=== PATIENT | female | born 1955 | race Two or more races ===

== ENCOUNTER 2023-06-13 21:21 | Emergency (ER) | payer BC, OTHER ==
[~2023-06-13] VITALS: Ht 154.9 cm; Wt 86.2 kg
[2023-06-13] MEDS ORDERED: LIDOCAINE VISCOUS 2% UD 15 ML UDC ONE (22:53)
[2023-06-13] MEDS ORDERED: MORPHINE SULFATE INJ 4 MG/ML DISP.SYRIN ONE (22:53)
[2023-06-13] MEDS ORDERED: ONDANSETRON HCL/PF 4 MG/2 ML VIAL ONE (22:53)
[2023-06-13] MEDS ORDERED: MAG HYDROX/AL HYDROX/SIMETH 30 ML UDC ONE (22:53)
[2023-06-13] MEDS ORDERED: IV NS 0.9% 1,000 ML BAG IV ONE (23:00)
[2023-06-13] MEDS ORDERED: ONDANSETRON HCL/PF 4 MG/2 ML VIAL IVP ONE (23:00)
[2023-06-13] MEDS ORDERED: MAG HYDROX/AL HYDROX/SIMETH 30 ML UDC PO ONE (23:00)
[2023-06-13] MEDS ORDERED: LIDOCAINE VISCOUS 2% UD 15 ML UDC MM ONE (23:00)
[2023-06-13] MEDS ORDERED: MORPHINE SULFATE INJ 2 MG/ML DISP.SYRIN IV ONE (23:00)
[2023-06-13 23:08] LABS: BASOPHILS % (AUTO) 0.2 % (0.0-2.0); EOSINOPHILS % (AUTO) 0.2 % (0.0-6.0); HEMATOCRIT 44 % (33-45); HEMOGLOBIN 14.5 g/dL (11.5-14.8); LYMPHOCYTES # (AUTO) 1.6 K/uL (0.8-4.8); LYMPHOCYTES % (AUTO) 15.8 % (20.0-44.0); MEAN CORPUSCULAR HEMOGLOBIN 31 PG (26.0-33.0); MEAN CORPUSCULAR HGB CONC 33 g/dl (31.0-36.0); MEAN CORPUSCULAR VOLUME 93 fL (82-100); MONOCYTES # (AUTO) 0.1 K/uL (0.1-1.30); MONOCYTES % (AUTO) 1.3 % (2.0-12.0); NEUTROPHILS # (AUTO) 8.1 K/uL (1.8-8.9); NEUTROPHILS % (AUTO) 82.5 % (43.0-81.0); PLATELET COUNT (AUTO) 87 K/uL (150-450); RED BLOOD CELL COUNT(AUTO) 4.74 MIL/uL (4.0-5.2); RED CELL DISTRIBUTION WIDTH 16.1 % (11.5-15.0); WHITE BLOOD COUNT (AUTO) 9.9 K/uL (4.3-11.0)
[2023-06-13 23:40] LABS: BILIRUBIN,DIRECT 0.3 mg/dL (0.0-0.2); BILIRUBIN,TOTAL 0.9 mg/dL (0.2-1.0); CALCIUM, SERUM 9.8 mg/dL (8.5-10.1); POTASSIUM 3.6 mmol/L (3.5-5.1); TOTAL PROTEIN, SERUM 9.1 g/dL (6.4-8.2)
[2023-06-14 01:31] LABS: BAND % (MANUAL) 7 % (0.0-5.0); LYMPHOCYTES % (MANUAL) 14 % (16-48); MONOCYTES % (MANUAL) 1 % (0-11.0); NEUTROPHILS % (MANUAL) 78 (42-76)
[2023-06-14 01:32] LABS: PLATELET ESTIMATE DECREASED
[2023-06-14] MEDS ORDERED: ONDA4TAB11 PO (04:58)
[2023-06-14 04:59] VITALS: BP 139/70; TEMP 98.1; O2SAT 98
== END 2023-06-14 05:04 | disposition home or self-care (01) ==
LOC: ER 21:23
DX: R10.10 Upper abdominal pain, unspecified (principal); R11.2 Nausea with vomiting, unspecified; I10 Essential (primary) hypertension; E78.5 Hyperlipidemia, unspecified; E11.9 Type 2 diabetes mellitus without complications
CPT/HCPCS: 99285; 74176; 96374; 96361; 96375; 93005; 85025; 80048; 83690; 80076; 36415; 85007; J2270; J2405; J7030

== ENCOUNTER 2024-03-13 16:12 | Inpatient (IN) | payer MEDICARE, BC ==
[~2024-03-13] VITALS: Ht 152.4 cm; Wt 75.7 kg
[~2024-03-13 16:12] MED LIST: ONDA4TAB11 PO
[2024-03-13 17:03] LABS: SERUM AMMONIA 11 umol/L (11-32)
[2024-03-13 17:12] LABS: BASOPHILS % (AUTO) 0.6 % (0.0-2.0); EOSINOPHILS # (AUTO) 0.1 K/uL (0.0-0.7); EOSINOPHILS % (AUTO) 1.6 % (0.0-6.0); HEMATOCRIT 31 % (33-45); HEMOGLOBIN 10.1 g/dL (11.5-14.8); LYMPHOCYTES # (AUTO) 0.8 K/uL (0.8-4.8); MEAN CORPUSCULAR HEMOGLOBIN 31 PG (26.0-33.0); MEAN CORPUSCULAR HGB CONC 33 g/dl (31.0-36.0); MEAN CORPUSCULAR VOLUME 93 fL (82-100); MONOCYTES # (AUTO) 0.5 K/uL (0.1-1.30); MONOCYTES % (AUTO) 9.1 % (2.0-12.0); NEUTROPHILS # (AUTO) 3.7 K/uL (1.8-8.9); NEUTROPHILS % (AUTO) 72.7 % (43.0-81.0); RED BLOOD CELL COUNT(AUTO) 3.29 MIL/uL (4.0-5.2); RED CELL DISTRIBUTION WIDTH 22.7 % (11.5-15.0); WHITE BLOOD COUNT (AUTO) 5.1 K/uL (4.3-11.0)
[2024-03-13 17:15] LABS: PLATELET COUNT (AUTO) 32 K/uL (150-450)
[2024-03-13] MEDS: CEFEPIME 1 GM in IV D5W 50 ML IV ONE (17:34)
[2024-03-13 17:40] LABS: INR 1.36 (0.91-1.10); PARTIAL THROMBOPLASTIN TIME 35.5 SEC (24.3-34.3); PROTHROMBIN TIME 13.8 SECS (9.2-11.1)
[2024-03-13 17:46] LABS: LACTIC ACID 2.8 mmol/L (0.4-2.0)
[2024-03-13 17:48] LABS: CALCIUM, SERUM 9.1 mg/dL (8.5-10.1); CARBON DIOXIDE 20 mmol/L (21-32); CHLORIDE 90 mmol/L (98-107); GLUCOSE 112 mg/dL (74-106); POTASSIUM 5.2 mmol/L (3.5-5.1); SODIUM SERUM 127 mmol/L (136-145)
[2024-03-13 17:54] LABS: ALANINE AMINOTRANSFERASE 46 U/L (12-78); ALBUMIN 2.8 g/dL (3.4-5.0); ALKALINE PHOSPHATASE 207 U/L (46-116); ASPARTATE AMINOTRANSFERASE 101 U/L (15-37); BILIRUBIN,DIRECT 2.4 mg/dL (0.0-0.2); BILIRUBIN,TOTAL 3.5 mg/dL (0.2-1.0); CREATININE 10.1 mg/dL (0.6-1.3); LIPASE < 375 U/L (16-77); TOTAL PROTEIN, SERUM 7.8 g/dL (6.4-8.2); UREA NITROGEN, BLOOD 109 mg/dL (7-18)
[2024-03-13] MEDS: VANCOMYCIN 1 GM in IV D5W 250 ML IV ONE (18:03)
[2024-03-13] MEDS ORDERED: MAG HYDROX/AL HYDROX/SIMETH 30 ML UDC PO PRN (18:30)
[2024-03-13] MEDS ORDERED: ACETAMINOPHEN 325 MG TABLET PO PRN (18:30)
[2024-03-13] MEDS ORDERED: Z GUARD REMEDY 4 OZ OINT TP PRN (18:30)
[2024-03-13] MEDS ORDERED: MAGNESIUM HYDROXIDE 30 ML UDC PO PRN (18:30)
[2024-03-13] MEDS ORDERED: ONDANSETRON 4 MG TAB.RAPDIS PO PRN (18:30)
[2024-03-13] MEDS ORDERED: GABA300C PO (19:10)
[2024-03-13] MEDS ORDERED: LOPE2CAP14 PO (19:10)
[2024-03-13] MEDS ORDERED: SPIR50TA PO (19:10)
[2024-03-13] MEDS ORDERED: PANT40TA49 PO (19:10)
[2024-03-13] MEDS ORDERED: DAPA10TA PO (19:10)
[2024-03-13] MEDS ORDERED: CARV6.252 PO (19:10)
[2024-03-13] MEDS ORDERED: FURO20TA4 PO (19:10)
[2024-03-13] MEDS ORDERED: PRAV20TA4 PO (19:10)
[2024-03-13 19:28] LABS: LYMPHOCYTES % (MANUAL) 11 % (16-48); MONOCYTES % (MANUAL) 8 % (0-11.0); NEUTROPHILS % (MANUAL) 81 (42-76)
[2024-03-13 19:29] LABS: ANISOCYTOSIS 1+; PLATELET ESTIMATE DECRE
[2024-03-13 19:30] LABS: TARGET CELLS 1+
[2024-03-13 21:41] VITALS: BP 92/70; TEMP 98.7; O2SAT 96
[2024-03-14] VITALS (20 sets, daily range): BP systolic 82–122; BP diastolic 44–95; TEMP 97.4–98.7; O2SAT 95–98
[2024-03-14 07:37] LABS: BASOPHILS % (AUTO) 0.3 % (0.0-2.0); EOSINOPHILS % (AUTO) 1.1 % (0.0-6.0); HEMATOCRIT 30 % (33-45); LYMPHOCYTES # (AUTO) 0.7 K/uL (0.8-4.8); LYMPHOCYTES % (AUTO) 16.5 % (20.0-44.0); MEAN CORPUSCULAR HEMOGLOBIN 31 PG (26.0-33.0); MEAN CORPUSCULAR HGB CONC 34 g/dl (31.0-36.0); MEAN CORPUSCULAR VOLUME 93 fL (82-100); MONOCYTES # (AUTO) 0.4 K/uL (0.1-1.30); MONOCYTES % (AUTO) 8.5 % (2.0-12.0); NEUTROPHILS # (AUTO) 3.2 K/uL (1.8-8.9); NEUTROPHILS % (AUTO) 73.6 % (43.0-81.0); RED BLOOD CELL COUNT(AUTO) 3.18 MIL/uL (4.0-5.2); RED CELL DISTRIBUTION WIDTH 22.1 % (11.5-15.0); WHITE BLOOD COUNT (AUTO) 4.4 K/uL (4.3-11.0)
[2024-03-14 08:03] LABS: PLATELET COUNT (AUTO) 30 K/uL (150-450)
[2024-03-14 10:09] LABS: CALCIUM, SERUM 8.8 mg/dL (8.5-10.1); MAGNESIUM 2.8 mg/dL (1.8-2.4); POTASSIUM 5.4 mmol/L (3.5-5.1)
[2024-03-14 10:30] LABS: CREATININE 10.5 mg/dL (0.6-1.3); PHOSPHORUS 10.3 mg/dL (2.5-4.9)
[2024-03-14] MEDS ORDERED: SODIUM POLYSTYRENE SULF. PWD 15 GM UDC PO ONE (10:30)
[2024-03-14] MEDS: SODIUM POLYSTYRENE SULFONATE 15 G/60 ML BOTTLE PO ONE (11:29)
[2024-03-14 15:53] LABS: EOSINOPHILS % (MANUAL) 1 % (0-4); LYMPHOCYTES % (MANUAL) 11 % (16-48); MONOCYTES % (MANUAL) 7 % (0-11.0); NEUTROPHILS % (MANUAL) 81 (42-76); PLATELET ESTIMATE DECREASED
[2024-03-14 15:54] LABS: ANISOCYTOSIS 1+
[2024-03-14] MEDS: CARVEDILOL 6.25 MG TABLET PO SCH (16:34)
[2024-03-14] MEDS: NOREPINEPHRINE 8 MG in IV D5W 242 ML IV PRN (18:09)
[2024-03-14] MEDS: MIDODRINE HCL (5MG) 5 MG TABLET PO ONE (18:21)
[2024-03-14] MEDS: CEFEPIME 1 GM in IV D5W 50 ML IV SCH (20:07)
[2024-03-15] VITALS (98 sets, daily range): BP systolic 75–114; BP diastolic 47–83; TEMP 97.5–98.1; O2SAT 93–97
[2024-03-15 04:28] LABS: BASOPHILS % (AUTO) 0.3 % (0.0-2.0); EOSINOPHILS # (AUTO) 0.1 K/uL (0.0-0.7); EOSINOPHILS % (AUTO) 1.3 % (0.0-6.0); HEMATOCRIT 30 % (33-45); HEMOGLOBIN 10.3 g/dL (11.5-14.8); LYMPHOCYTES # (AUTO) 0.9 K/uL (0.8-4.8); LYMPHOCYTES % (AUTO) 15.3 % (20.0-44.0); MEAN CORPUSCULAR HEMOGLOBIN 32 PG (26.0-33.0); MEAN CORPUSCULAR HGB CONC 34 g/dl (31.0-36.0); MEAN CORPUSCULAR VOLUME 92 fL (82-100); MONOCYTES # (AUTO) 0.4 K/uL (0.1-1.30); MONOCYTES % (AUTO) 7.4 % (2.0-12.0); NEUTROPHILS # (AUTO) 4.4 K/uL (1.8-8.9); NEUTROPHILS % (AUTO) 75.7 % (43.0-81.0); RED BLOOD CELL COUNT(AUTO) 3.25 MIL/uL (4.0-5.2); RED CELL DISTRIBUTION WIDTH 22.2 % (11.5-15.0); WHITE BLOOD COUNT (AUTO) 5.8 K/uL (4.3-11.0)
[2024-03-15 04:37] LABS: PLATELET COUNT (AUTO) 44 K/uL (150-450)
[2024-03-15 04:51] LABS: ALBUMIN 2.8 g/dL (3.4-5.0); BILIRUBIN,TOTAL 3.6 mg/dL (0.2-1.0); CALCIUM, SERUM 8.7 mg/dL (8.5-10.1); CREATININE 7.5 mg/dL (0.6-1.3); MAGNESIUM 2.6 mg/dL (1.8-2.4); PHOSPHORUS 7.2 mg/dL (2.5-4.9); POTASSIUM 4.3 mmol/L (3.5-5.1); TOTAL PROTEIN, SERUM 8.2 g/dL (6.4-8.2)
[2024-03-15] MEDS: PANTOPRAZOLE 40 MG TABLET.DR PO SCH (08:14)
[2024-03-15 12:37] LABS: ANISOCYTOSIS 1+; EOSINOPHILS % (MANUAL) 2 % (0-4); HYPOCHROMASIA 1+; LYMPHOCYTES % (MANUAL) 8 % (16-48); MONOCYTES % (MANUAL) 3 % (0-11.0); NEUTROPHILS % (MANUAL) 87 (42-76); PLATELET ESTIMATE DECREASED; TARGET CELLS 1+
[2024-03-16] VITALS (96 sets, daily range): BP systolic 68–132; BP diastolic 31–80; TEMP 98.1–98.7; O2SAT 91–100
[2024-03-16] MEDS: ONDANSETRON HCL/PF 4 MG/2 ML VIAL IVP PRN (04:33)
[2024-03-16 05:12] LABS: BASOPHILS % (AUTO) 0.5 % (0.0-2.0); EOSINOPHILS # (AUTO) 0.1 K/uL (0.0-0.7); EOSINOPHILS % (AUTO) 1.5 % (0.0-6.0); HEMATOCRIT 31 % (33-45); HEMOGLOBIN 10.8 g/dL (11.5-14.8); LYMPHOCYTES # (AUTO) 1.2 K/uL (0.8-4.8); LYMPHOCYTES % (AUTO) 16.5 % (20.0-44.0); MEAN CORPUSCULAR HEMOGLOBIN 32 PG (26.0-33.0); MEAN CORPUSCULAR HGB CONC 35 g/dl (31.0-36.0); MEAN CORPUSCULAR VOLUME 92 fL (82-100); MONOCYTES # (AUTO) 0.6 K/uL (0.1-1.30); MONOCYTES % (AUTO) 8.3 % (2.0-12.0); NEUTROPHILS # (AUTO) 5.2 K/uL (1.8-8.9); NEUTROPHILS % (AUTO) 73.2 % (43.0-81.0); PLATELET COUNT (AUTO) 86 K/uL (150-450); RED BLOOD CELL COUNT(AUTO) 3.39 MIL/uL (4.0-5.2); RED CELL DISTRIBUTION WIDTH 22.6 % (11.5-15.0)
[2024-03-16 05:53] LABS: POTASSIUM 6.4 mmol/L (3.5-5.1)
[2024-03-16 06:16] LABS: BASOPHILS % (MANUAL) 0 % (0.0-2.0); EOSINOPHILS % (MANUAL) 2 % (0-4); LYMPHOCYTES % (MANUAL) 11 % (16-48); MONOCYTES % (MANUAL) 6 % (0-11.0); NEUTROPHILS % (MANUAL) 81 (42-76); PLATELET ESTIMATE DECREASED
[2024-03-16 06:17] LABS: ANISOCYTOSIS 1+; TARGET CELLS 2+
[2024-03-16] MEDS: SODIUM POLYSTYRENE SULFONATE 15 G/60 ML BOTTLE PO ONE (06:30)
[2024-03-16 08:12] LABS: PTH, INTACT 139 pg/mL (15-65)
[2024-03-16 08:12] LABS: HEPATITIS B SURFACE AB Non Reactive (.)
[2024-03-16] MEDS: ALBUTEROL FS 2.5 MG/0.5 ML VIAL.NEB NEB ONE (08:22)
[2024-03-16] MEDS: CLOTRIMAZOLE/BETAMETASONE DIPROPIONATE 15 GM TUBE TP SCH (10:15)
[2024-03-16] MEDS: LORAZEPAM INJ 2 MG/ML VIAL IV PRN (10:55)
[2024-03-16 11:12] LABS: HEPATITIS B CORE AB, IgM Negative (Negative); HEPATITIS B CORE AB, TOTAL Negative (Negative); HEPATITIS B SURFACE AB Non Reactive (.)
[2024-03-16] MEDS: HYDROCORTISONE SOD SUCCINATE 100 MG/2 ML VIAL IV SCH (14:09)
[2024-03-16 19:01] LABS: POTASSIUM 4.2 mmol/L (3.5-5.1)
[2024-03-17] VITALS (59 sets, daily range): BP systolic 81–134; BP diastolic 47–107; TEMP 96.1–98.6; O2SAT 90–100
[2024-03-17] MEDS: DILTIAZEM HCL 50 MG IV IV ONE (02:37)
[2024-03-17 05:16] LABS: CALCIUM, SERUM 8.2 mg/dL (8.5-10.1); CREATININE 5.9 mg/dL (0.6-1.3)
[2024-03-17 05:18] LABS: BASOPHILS % (AUTO) 0.4 % (0.0-2.0); EOSINOPHILS % (AUTO) 0.1 % (0.0-6.0); HEMATOCRIT 30 % (33-45); HEMOGLOBIN 10.4 g/dL (11.5-14.8); LYMPHOCYTES # (AUTO) 1.5 K/uL (0.8-4.8); LYMPHOCYTES % (AUTO) 18.7 % (20.0-44.0); MEAN CORPUSCULAR HEMOGLOBIN 32 PG (26.0-33.0); MEAN CORPUSCULAR HGB CONC 35 g/dl (31.0-36.0); MEAN CORPUSCULAR VOLUME 92 fL (82-100); MONOCYTES # (AUTO) 0.4 K/uL (0.1-1.30); MONOCYTES % (AUTO) 5.2 % (2.0-12.0); NEUTROPHILS % (AUTO) 75.6 % (43.0-81.0); PLATELET COUNT (AUTO) 135 K/uL (150-450); RED BLOOD CELL COUNT(AUTO) 3.26 MIL/uL (4.0-5.2); RED CELL DISTRIBUTION WIDTH 23.3 % (11.5-15.0); WHITE BLOOD COUNT (AUTO) 7.9 K/uL (4.3-11.0)
[2024-03-17 05:47] LABS: POTASSIUM 7.8 mmol/L (3.5-5.1)
[2024-03-17 06:30] LABS: PLATELET ESTIMATE DECREASED
[2024-03-17 06:31] LABS: ANISOCYTOSIS 2+; TARGET CELLS 1+; TEAR DROP CELLS 1+
[2024-03-17] MEDS: SODIUM POLYSTYRENE SULFONATE 15 G/60 ML BOTTLE PO ONE (06:55)
[2024-03-18] VITALS (36 sets, daily range): BP systolic 80–132; BP diastolic 49–116; TEMP 97–98; O2SAT 93–100
[2024-03-18] MEDS ORDERED: NEPRO VAN 237 ML CAN PO PRN (10:00)
[2024-03-18 12:10] LABS: CALCIUM, SERUM 8.9 mg/dL (8.5-10.1); CREATININE 5.4 mg/dL (0.6-1.3)
[2024-03-19] VITALS (8 sets, daily range): BP systolic 88–99; BP diastolic 48–76; TEMP 97.1–97.4; O2SAT 95–99
[2024-03-19 07:10] LABS: *SPE A/G RATIO 0.7 (0.7-1.7); *SPE ALBUMIN 3.1 g/dL (2.9-4.4); *SPE ALPHA-1-GLOBULIN 0.3 g/dL (0.0-0.4); *SPE ALPHA-2-GLOBULIN 0.7 g/dL (0.4-1.0); *SPE BETA GLOBULIN 1.1 g/dL (0.7-1.3); *SPE GLOBULIN, TOTAL 4.7 g/dL (2.2-3.9); *SPE M-SPIKE Not Observed g/dL (Not Observed); *SPE PROTEIN TOTAL 7.8 g/dL (6.0-8.5); *SPEGAMMA GLOBULIN 2.6 g/dL (0.4-1.8)
[2024-03-19 08:12] LABS: CALCIUM, SERUM 9.2 mg/dL (8.5-10.1); POTASSIUM 3.7 mmol/L (3.5-5.1)
[2024-03-19] MEDS: PANTOPRAZOLE 40 MG VIAL IV SCH (08:31)
[2024-03-19 09:45] LABS: BASOPHILS % (AUTO) 0.3 % (0.0-2.0); EOSINOPHILS % (AUTO) 0.1 % (0.0-6.0); HEMATOCRIT 29 % (33-45); HEMOGLOBIN 9.9 g/dL (11.5-14.8); LYMPHOCYTES % (AUTO) 16.1 % (20.0-44.0); MEAN CORPUSCULAR HEMOGLOBIN 32 PG (26.0-33.0); MEAN CORPUSCULAR HGB CONC 34 g/dl (31.0-36.0); MEAN CORPUSCULAR VOLUME 93 fL (82-100); MONOCYTES # (AUTO) 0.3 K/uL (0.1-1.30); MONOCYTES % (AUTO) 5.2 % (2.0-12.0); NEUTROPHILS % (AUTO) 78.3 % (43.0-81.0); RED BLOOD CELL COUNT(AUTO) 3.11 MIL/uL (4.0-5.2); RED CELL DISTRIBUTION WIDTH 23.8 % (11.5-15.0); WHITE BLOOD COUNT (AUTO) 6.4 K/uL (4.3-11.0)
[2024-03-19 10:01] LABS: PLATELET COUNT (AUTO) 12 K/uL (150-450)
[2024-03-19 10:35] LABS: BASOPHILS % (MANUAL) 0 % (0.0-2.0); EOSINOPHILS % (MANUAL) 0 % (0-4); LYMPHOCYTES % (MANUAL) 9 % (16-48); MONOCYTES % (MANUAL) 4 % (0-11.0); NEUTROPHILS % (MANUAL) 87 (42-76)
[2024-03-19] MEDS: ALBUMIN 25% 25 GM in PREMIX 1 EA IV PRN (12:27)
[2024-03-19] MEDS: HYDROCORTISONE SOD SUCCINATE 100 MG/2 ML VIAL IV SCH (16:09)
[2024-03-19] MEDS: IV NS 0.9% 250 ML IV ONE (17:24)
[2024-03-20] VITALS (7 sets, daily range): BP systolic 90–130; BP diastolic 48–84; TEMP 97.1–98.1; O2SAT 96–99
[2024-03-20 07:11] LABS: BASOPHILS % (AUTO) 0.3 % (0.0-2.0); EOSINOPHILS % (AUTO) 0.1 % (0.0-6.0); HEMATOCRIT 29 % (33-45); HEMOGLOBIN 10.2 g/dL (11.5-14.8); LYMPHOCYTES # (AUTO) 0.8 K/uL (0.8-4.8); LYMPHOCYTES % (AUTO) 15.1 % (20.0-44.0); MEAN CORPUSCULAR HEMOGLOBIN 32 PG (26.0-33.0); MEAN CORPUSCULAR HGB CONC 35 g/dl (31.0-36.0); MEAN CORPUSCULAR VOLUME 92 fL (82-100); MONOCYTES # (AUTO) 0.3 K/uL (0.1-1.30); MONOCYTES % (AUTO) 5.4 % (2.0-12.0); NEUTROPHILS # (AUTO) 4.1 K/uL (1.8-8.9); NEUTROPHILS % (AUTO) 79.1 % (43.0-81.0); RED BLOOD CELL COUNT(AUTO) 3.17 MIL/uL (4.0-5.2); RED CELL DISTRIBUTION WIDTH 22.3 % (11.5-15.0); WHITE BLOOD COUNT (AUTO) 5.2 K/uL (4.3-11.0)
[2024-03-20 08:16] LABS: PLATELET COUNT (AUTO) 24 K/uL (150-450)
[2024-03-20 08:23] LABS: CALCIUM, SERUM 8.6 mg/dL (8.5-10.1); CREATININE 4.1 mg/dL (0.6-1.3); MAGNESIUM 2.3 mg/dL (1.8-2.4); PHOSPHORUS 5.9 mg/dL (2.5-4.9); POTASSIUM 5.4 mmol/L (3.5-5.1)
[2024-03-20 10:50] LABS: LYMPHOCYTES % (MANUAL) 7 % (16-48); MONOCYTES % (MANUAL) 2 % (0-11.0); NEUTROPHILS % (MANUAL) 91 (42-76); PLATELET ESTIMATE DECREASED
[2024-03-20 10:51] LABS: ANISOCYTOSIS 1+; HYPOCHROMASIA 1+; TARGET CELLS 1+; TEAR DROP CELLS 1+
[2024-03-21] VITALS (7 sets, daily range): BP systolic 96–130; BP diastolic 48–78; TEMP 96.3–98.1; O2SAT 94–99
[2024-03-21 06:49] LABS: BASOPHILS % (AUTO) 0.1 % (0.0-2.0); HEMATOCRIT 31 % (33-45); HEMOGLOBIN 10.6 g/dL (11.5-14.8); LYMPHOCYTES # (AUTO) 0.9 K/uL (0.8-4.8); LYMPHOCYTES % (AUTO) 11.7 % (20.0-44.0); MEAN CORPUSCULAR HEMOGLOBIN 32 PG (26.0-33.0); MEAN CORPUSCULAR HGB CONC 34 g/dl (31.0-36.0); MEAN CORPUSCULAR VOLUME 92 fL (82-100); MONOCYTES # (AUTO) 0.4 K/uL (0.1-1.30); MONOCYTES % (AUTO) 4.7 % (2.0-12.0); NEUTROPHILS # (AUTO) 6.4 K/uL (1.8-8.9); NEUTROPHILS % (AUTO) 83.5 % (43.0-81.0); RED BLOOD CELL COUNT(AUTO) 3.35 MIL/uL (4.0-5.2); RED CELL DISTRIBUTION WIDTH 22.8 % (11.5-15.0); WHITE BLOOD COUNT (AUTO) 7.7 K/uL (4.3-11.0)
[2024-03-21 07:07] LABS: CALCIUM, SERUM 9.4 mg/dL (8.5-10.1); CREATININE 5.3 mg/dL (0.6-1.3)
[2024-03-21 07:31] LABS: PLATELET COUNT (AUTO) 16 K/uL (150-450)
[2024-03-21 07:52] LABS: POTASSIUM 2.6 mmol/L (3.5-5.1)
[2024-03-21] MEDS: POTASSIUM CL. PREMIX PERIPHER. 50 ML IV SCH (08:27)
[2024-03-21] MEDS: HYDROCORTISONE SOD SUCCINATE 100 MG/2 ML VIAL IV SCH (08:28)
[2024-03-21] MEDS ORDERED: LIDOCAINE HCL/MPF 1% 30 ML VIAL IJ ONE (10:01)
[2024-03-21] MEDS ORDERED: HEPARIN SODIUM, PORCINE 1,000 UNIT/ML VIAL ONE (10:01)
[2024-03-21] MEDS ORDERED: IOHEXOL 0 ML IV ONE (10:01)
[2024-03-21 10:13] LABS: PARTIAL THROMBOPLASTIN TIME 41.6 SEC (24.3-34.3)
[2024-03-21 10:17] LABS: INR > 10.00 (0.91-1.10)
[2024-03-21 10:18] LABS: PROTHROMBIN TIME > 100.0 SECS (9.2-11.1)
[2024-03-21] MEDS: IV NS 0.9% 250 ML IV ONE (10:27)
[2024-03-21 11:14] LABS: LYMPHOCYTES % (MANUAL) 5 % (16-48); MONOCYTES % (MANUAL) 2 % (0-11.0); NEUTROPHILS % (MANUAL) 93 (42-76); PLATELET ESTIMATE DECREASED
[2024-03-21 11:15] LABS: ANISOCYTOSIS 1+; HYPOCHROMASIA 1+
[2024-03-21 12:14] LABS: PARTIAL THROMBOPLASTIN TIME 41.6 SEC (24.3-34.3)
[2024-03-21 12:16] LABS: INR > 10.00 (0.91-1.10)
[2024-03-21 12:17] LABS: PROTHROMBIN TIME > 100.0 SECS (9.2-11.1)
[2024-03-21 14:38] LABS: PARTIAL THROMBOPLASTIN TIME 41.6 SEC (24.3-34.3)
[2024-03-21 16:28] LABS: INR > 10.00 (0.91-1.10)
[2024-03-21 16:40] LABS: PROTHROMBIN TIME > 100.0 SECS (9.2-11.1)
[2024-03-21] MEDS: PHYTONADIONE INJ 10 MG/1 ML AMPUL SQ ONE (20:24)
[2024-03-22] VITALS (19 sets, daily range): BP systolic 99–122; BP diastolic 57–77; TEMP 96.9–97.8; O2SAT 97–98
[2024-03-22 07:00] LABS: BASOPHILS % (AUTO) 0.1 % (0.0-2.0); EOSINOPHILS % (AUTO) 0.1 % (0.0-6.0); HEMATOCRIT 30 % (33-45); HEMOGLOBIN 10.1 g/dL (11.5-14.8); LYMPHOCYTES # (AUTO) 0.6 K/uL (0.8-4.8); LYMPHOCYTES % (AUTO) 9.2 % (20.0-44.0); MEAN CORPUSCULAR HEMOGLOBIN 31 PG (26.0-33.0); MEAN CORPUSCULAR HGB CONC 34 g/dl (31.0-36.0); MEAN CORPUSCULAR VOLUME 92 fL (82-100); MONOCYTES # (AUTO) 0.3 K/uL (0.1-1.30); MONOCYTES % (AUTO) 4.2 % (2.0-12.0); NEUTROPHILS # (AUTO) 5.3 K/uL (1.8-8.9); NEUTROPHILS % (AUTO) 86.4 % (43.0-81.0); RED CELL DISTRIBUTION WIDTH 23.2 % (11.5-15.0); WHITE BLOOD COUNT (AUTO) 6.1 K/uL (4.3-11.0)
[2024-03-22 07:31] LABS: PLATELET COUNT (AUTO) 15 K/uL (150-450)
[2024-03-22 07:45] LABS: CREATININE 3.8 mg/dL (0.6-1.3); MAGNESIUM 2.2 mg/dL (1.8-2.4); PHOSPHORUS 4.7 mg/dL (2.5-4.9); POTASSIUM 3.3 mmol/L (3.5-5.1)
[2024-03-22 12:28] LABS: LYMPHOCYTES % (MANUAL) 3 % (16-48); MONOCYTES % (MANUAL) 2 % (0-11.0); NEUTROPHILS % (MANUAL) 95 (42-76); PLATELET ESTIMATE DECREASED
[2024-03-22 12:29] LABS: ANISOCYTOSIS 1+; STOMATOCYTES 1+; TARGET CELLS 1+
[2024-03-22] MEDS: POTASSIUM CL. PREMIX PERIPHER. 50 ML IV SCH (16:36)
[2024-03-22 16:50] LABS: INR 1.71 (0.91-1.10); PROTHROMBIN TIME 17.5 SECS (9.2-11.1)
[2024-03-23] VITALS: BP 113/72; TEMP 97.3; O2SAT 97
[2024-03-23 04:00] VITALS: BP 119/62; TEMP 98.7; O2SAT 97
[2024-03-23 04:47] VITALS: O2SAT 95
[2024-03-23 08:00] VITALS: BP 116/70; TEMP 97.5; O2SAT 97
[2024-03-23 12:31] LABS: BILIRUBIN,TOTAL 7.4 mg/dL (0.2-1.0); CALCIUM, SERUM 9.6 mg/dL (8.5-10.1); CREATININE 4.6 mg/dL (0.6-1.3); MAGNESIUM 2.4 mg/dL (1.8-2.4); PHOSPHORUS 5.8 mg/dL (2.5-4.9); POTASSIUM 4.1 mmol/L (3.5-5.1); TOTAL PROTEIN, SERUM 7.8 g/dL (6.4-8.2)
[2024-03-23 13:27] LABS: BASOPHILS % (AUTO) 0.4 % (0.0-2.0); EOSINOPHILS % (AUTO) 0.4 % (0.0-6.0); HEMATOCRIT 31 % (33-45); HEMOGLOBIN 10.6 g/dL (11.5-14.8); LYMPHOCYTES # (AUTO) 0.6 K/uL (0.8-4.8); MEAN CORPUSCULAR HEMOGLOBIN 32 PG (26.0-33.0); MEAN CORPUSCULAR HGB CONC 34 g/dl (31.0-36.0); MEAN CORPUSCULAR VOLUME 93 fL (82-100); MONOCYTES # (AUTO) 0.4 K/uL (0.1-1.30); MONOCYTES % (AUTO) 5.9 % (2.0-12.0); NEUTROPHILS # (AUTO) 5.6 K/uL (1.8-8.9); NEUTROPHILS % (AUTO) 84.3 % (43.0-81.0); RED BLOOD CELL COUNT(AUTO) 3.36 MIL/uL (4.0-5.2); RED CELL DISTRIBUTION WIDTH 23.8 % (11.5-15.0); WHITE BLOOD COUNT (AUTO) 6.6 K/uL (4.3-11.0)
[2024-03-23 13:34] LABS: PLATELET COUNT (AUTO) 19 K/uL (150-450)
[2024-03-23 13:47] LABS: ANISOCYTOSIS 1+; BASOPHILS % (MANUAL) 0 % (0.0-2.0); EOSINOPHILS % (MANUAL) 0 % (0-4); LYMPHOCYTES % (MANUAL) 8 % (16-48); MONOCYTES % (MANUAL) 5 % (0-11.0); NEUTROPHILS % (MANUAL) 87 (42-76); PLATELET ESTIMATE DECREASED; TARGET CELLS 1+
[2024-03-23] MEDS: FUROSEMIDE 20 MG TABLET PO SCH (22:30)
[2024-03-23] MEDS ORDERED: LOPERAMIDE HCL (2 MG CAP) 2 MG CAPSULE PO PRN (22:30)
[2024-03-23] MEDS: ATORVASTATIN 10 MG TABLET PO SCH (22:40)
[2024-03-23] MEDS: NOREPINEPHRINE 32 MG in IV NS 0.9% 218 ML IV PRN (22:50)
[2024-03-23] MEDS: NOREPINEPHRINE 4 MG/4 ML AMPUL IV ONE (23:03)
[2024-03-23] MEDS: AMIODARONE 150 MG/3 ML VIAL IV ONE (23:03)
[2024-03-23] MEDS: AMIODARONE 150 MG in IV D5W 100 ML IV ONE (23:08)
[2024-03-23] MEDS: AMIODARONE 450 MG in IV D5W 241 ML IV PRN (23:16)
[2024-03-23] MEDS ORDERED: IV NS 0.9% 250 ML IV PRN (23:30)
[2024-03-24] VITALS (83 sets, daily range): BP systolic 90–111; BP diastolic 40–62; TEMP 97.6–98; O2SAT 93–100
[2024-03-24] MEDS: AMIODARONE 150 MG/3 ML VIAL IV ONE (05:29)
[2024-03-24 06:02] LABS: BASOPHILS # (AUTO) 0.1 K/uL (0.0-0.2); BASOPHILS % (AUTO) 0.7 % (0.0-2.0); EOSINOPHILS # (AUTO) 0.1 K/uL (0.0-0.7); EOSINOPHILS % (AUTO) 0.6 % (0.0-6.0); HEMATOCRIT 32 % (33-45); LYMPHOCYTES # (AUTO) 1.1 K/uL (0.8-4.8); LYMPHOCYTES % (AUTO) 11.6 % (20.0-44.0); MEAN CORPUSCULAR HEMOGLOBIN 32 PG (26.0-33.0); MEAN CORPUSCULAR HGB CONC 34 g/dl (31.0-36.0); MEAN CORPUSCULAR VOLUME 93 fL (82-100); MONOCYTES # (AUTO) 0.6 K/uL (0.1-1.30); MONOCYTES % (AUTO) 6.5 % (2.0-12.0); NEUTROPHILS # (AUTO) 7.4 K/uL (1.8-8.9); NEUTROPHILS % (AUTO) 80.6 % (43.0-81.0); RED BLOOD CELL COUNT(AUTO) 3.47 MIL/uL (4.0-5.2); RED CELL DISTRIBUTION WIDTH 22.9 % (11.5-15.0); WHITE BLOOD COUNT (AUTO) 9.2 K/uL (4.3-11.0)
[2024-03-24 06:07] LABS: INR 1.77 (0.91-1.10); PLATELET COUNT (AUTO) 30 K/uL (150-450); PROTHROMBIN TIME 18.1 SECS (9.2-11.1)
[2024-03-24 06:09] LABS: CALCIUM, SERUM 9.2 mg/dL (8.5-10.1); MAGNESIUM 2.2 mg/dL (1.8-2.4); PHOSPHORUS 4.9 mg/dL (2.5-4.9); POTASSIUM 3.8 mmol/L (3.5-5.1)
[2024-03-24 06:35] LABS: ANISOCYTOSIS 1+; HYPOCHROMASIA 1+; LYMPHOCYTES % (MANUAL) 7 % (16-48); MONOCYTES % (MANUAL) 10 % (0-11.0); MYELOCYTES % 1 % (0-0); NEUTROPHILS % (MANUAL) 82 (42-76); PLATELET ESTIMATE DECREASED; TARGET CELLS 2+
[2024-03-24] MEDS: GABAPENTIN 300 MG CAPSULE PO SCH (08:58)
[2024-03-24] MEDS: PANTOPRAZOLE 40 MG TABLET.DR PO SCH (08:58)
[2024-03-24] MEDS ORDERED: SOTALOL AF 80 MG TABLET PO SCH (10:00)
[2024-03-25] VITALS (95 sets, daily range): BP systolic 74–144; BP diastolic 38–88; TEMP 97.6–98.4; O2SAT 9–98
[2024-03-25 04:49] LABS: BASOPHILS % (AUTO) 0.1 % (0.0-2.0); MONOCYTES # (AUTO) 0.5 K/uL (0.1-1.30); NEUTROPHILS % (AUTO) 81.7 % (43.0-81.0)
[2024-03-25 04:56] LABS: EOSINOPHILS # (AUTO) 0.1 K/uL (0.0-0.7); EOSINOPHILS % (AUTO) 0.8 % (0.0-6.0); HEMATOCRIT 33 % (33-45); LYMPHOCYTES % (AUTO) 11.4 % (20.0-44.0); MEAN CORPUSCULAR HEMOGLOBIN 32 PG (26.0-33.0); MEAN CORPUSCULAR HGB CONC 34 g/dl (31.0-36.0); MEAN CORPUSCULAR VOLUME 93 fL (82-100); NEUTROPHILS # (AUTO) 6.9 K/uL (1.8-8.9); RED BLOOD CELL COUNT(AUTO) 3.51 MIL/uL (4.0-5.2); RED CELL DISTRIBUTION WIDTH 23.4 % (11.5-15.0); WHITE BLOOD COUNT (AUTO) 8.4 K/uL (4.3-11.0)
[2024-03-25 05:09] LABS: CALCIUM, SERUM 9.6 mg/dL (8.5-10.1); CREATININE 4.7 mg/dL (0.6-1.3); POTASSIUM 4.7 mmol/L (3.5-5.1)
[2024-03-25 06:22] LABS: PLATELET COUNT (AUTO) 17 K/uL (150-450)
[2024-03-25 09:06] LABS: LYMPHOCYTES % (MANUAL) 8 % (16-48); MONOCYTES % (MANUAL) 5 % (0-11.0); MYELOCYTES % 1 % (0-0); NEUTROPHILS % (MANUAL) 86 (42-76)
[2024-03-25 09:07] LABS: ANISOCYTOSIS 1+; PLATELET ESTIMATE DECREASED; TARGET CELLS 2+
[2024-03-25] MEDS ORDERED: NOREPINEPHRINE 8 MG in IV D5W 250ML IV PRN (21:00)
[2024-03-26] VITALS (96 sets, daily range): BP systolic 87–134; BP diastolic 29–88; TEMP 97.8–98.6; O2SAT 91–97
[2024-03-26 05:04] LABS: BASOPHILS % (AUTO) 0.4 % (0.0-2.0); EOSINOPHILS % (AUTO) 0.2 % (0.0-6.0); HEMATOCRIT 28 % (33-45); HEMOGLOBIN 9.4 g/dL (11.5-14.8); LYMPHOCYTES # (AUTO) 1.3 K/uL (0.8-4.8); LYMPHOCYTES % (AUTO) 14.1 % (20.0-44.0); MEAN CORPUSCULAR HEMOGLOBIN 32 PG (26.0-33.0); MEAN CORPUSCULAR HGB CONC 34 g/dl (31.0-36.0); MEAN CORPUSCULAR VOLUME 93 fL (82-100); MONOCYTES # (AUTO) 0.6 K/uL (0.1-1.30); NEUTROPHILS # (AUTO) 7.4 K/uL (1.8-8.9); NEUTROPHILS % (AUTO) 79.3 % (43.0-81.0); RED CELL DISTRIBUTION WIDTH 22.8 % (11.5-15.0); WHITE BLOOD COUNT (AUTO) 9.4 K/uL (4.3-11.0)
[2024-03-26 05:08] LABS: PLATELET COUNT (AUTO) 15 K/uL (150-450)
[2024-03-26 05:14] LABS: CALCIUM, SERUM 8.9 mg/dL (8.5-10.1); CREATININE 3.9 mg/dL (0.6-1.3); POTASSIUM 3.9 mmol/L (3.5-5.1)
[2024-03-26 05:31] LABS: ANISOCYTOSIS 2+; LYMPHOCYTES % (MANUAL) 10 % (16-48); MONOCYTES % (MANUAL) 6 % (0-11.0); NEUTROPHILS % (MANUAL) 84 (42-76); PLATELET ESTIMATE DECREASED
[2024-03-26 05:32] LABS: HYPOCHROMASIA 1+; TARGET CELLS 1+
[2024-03-26 08:58] LABS: ABG BASE EXCESS -0.3 mmol/L (-2.0-2.0); ABG OXYGEN SATURATION 95.8 % (92.0-98.5); ABG PH 7.452 (7.350-7.450); ABG TOTAL HEMOGLOBIN 11.2 G/dL (12.0-16.0); AaDO2 133.2 mmHg; COHb 0.8 % (0.5-1.5); MetHb 0.3 % (0.0-1.5); O2Hb 94.7 % (94.0-97.0); SITE, ABG A-Line
[2024-03-26] MEDS: MORPHINE SULFATE INJ 4 MG/ML DISP.SYRIN IV PRN (12:20)
[2024-03-26] MEDS ORDERED: NEPRO VAN 237 ML CAN PO PRN (13:00)
[2024-03-27] VITALS (98 sets, daily range): BP systolic 74–142; BP diastolic 43–74; TEMP 97.7–98.5; O2SAT 91–96
[2024-03-27 04:55] LABS: CALCIUM, SERUM 8.2 mg/dL (8.5-10.1); CREATININE 4.1 mg/dL (0.6-1.3); POTASSIUM 5.4 mmol/L (3.5-5.1)
[2024-03-27 07:58] LABS: BASOPHILS % (AUTO) 0.2 % (0.0-2.0); EOSINOPHILS % (AUTO) 0.2 % (0.0-6.0); HEMATOCRIT 32 % (33-45); HEMOGLOBIN 10.4 g/dL (11.5-14.8); LYMPHOCYTES # (AUTO) 1.6 K/uL (0.8-4.8); LYMPHOCYTES % (AUTO) 13.2 % (20.0-44.0); MEAN CORPUSCULAR HEMOGLOBIN 31 PG (26.0-33.0); MEAN CORPUSCULAR HGB CONC 33 g/dl (31.0-36.0); MEAN CORPUSCULAR VOLUME 94 fL (82-100); MONOCYTES # (AUTO) 0.6 K/uL (0.1-1.30); MONOCYTES % (AUTO) 5.4 % (2.0-12.0); NEUTROPHILS # (AUTO) 9.7 K/uL (1.8-8.9); RED BLOOD CELL COUNT(AUTO) 3.37 MIL/uL (4.0-5.2); RED CELL DISTRIBUTION WIDTH 23.1 % (11.5-15.0)
[2024-03-27 08:02] LABS: PLATELET COUNT (AUTO) 20 K/uL (150-450)
[2024-03-27 10:36] LABS: ANISOCYTOSIS 1+; BAND % (MANUAL) 2 % (0.0-5.0); BASOPHILS % (MANUAL) 0 % (0.0-2.0); EOSINOPHILS % (MANUAL) 0 % (0-4); HYPOCHROMASIA 1+; LYMPHOCYTES % (MANUAL) 10 % (16-48); MONOCYTES % (MANUAL) 6 % (0-11.0); NEUTROPHILS % (MANUAL) 82 (42-76); PLATELET ESTIMATE DECREASED
[2024-03-27 10:50] LABS: TARGET CELLS 1+
[2024-03-27] MEDS: LACTULOSE 10 G/15 ML UDC (PYXIS) PR SCH (15:07)
[2024-03-28] VITALS (86 sets, daily range): BP systolic 47–105; BP diastolic 28–77; TEMP 96.6–97.6; O2SAT 78–96
[2024-03-28 05:15] LABS: BASOPHILS # (AUTO) 0.1 K/uL (0.0-0.2); BASOPHILS % (AUTO) 0.9 % (0.0-2.0); EOSINOPHILS % (AUTO) 0.1 % (0.0-6.0); HEMATOCRIT 29 % (33-45); HEMOGLOBIN 9.2 g/dL (11.5-14.8); LYMPHOCYTES # (AUTO) 1.3 K/uL (0.8-4.8); LYMPHOCYTES % (AUTO) 9.6 % (20.0-44.0); MEAN CORPUSCULAR HEMOGLOBIN 31 PG (26.0-33.0); MEAN CORPUSCULAR HGB CONC 32 g/dl (31.0-36.0); MEAN CORPUSCULAR VOLUME 96 fL (82-100); MONOCYTES # (AUTO) 0.6 K/uL (0.1-1.30); MONOCYTES % (AUTO) 4.6 % (2.0-12.0); NEUTROPHILS # (AUTO) 11.1 K/uL (1.8-8.9); NEUTROPHILS % (AUTO) 84.8 % (43.0-81.0); RED BLOOD CELL COUNT(AUTO) 3.01 MIL/uL (4.0-5.2); RED CELL DISTRIBUTION WIDTH 23.2 % (11.5-15.0)
[2024-03-28 05:17] LABS: PLATELET COUNT (AUTO) 22 K/uL (150-450)
[2024-03-28 05:44] LABS: ALBUMIN 2.8 g/dL (3.4-5.0); BILIRUBIN,TOTAL 18.7 mg/dL (0.2-1.0); CALCIUM, SERUM 9.2 mg/dL (8.5-10.1); CREATININE 5.3 mg/dL (0.6-1.3); MAGNESIUM 2.6 mg/dL (1.8-2.4); POTASSIUM 5.6 mmol/L (3.5-5.1); TOTAL PROTEIN, SERUM 7.4 g/dL (6.4-8.2)
[2024-03-28 06:05] LABS: PHOSPHORUS 8.5 mg/dL (2.5-4.9)
[2024-03-28 06:08] LABS: ANISOCYTOSIS 1+; BAND % (MANUAL) 3 % (0.0-5.0); BASOPHILS % (MANUAL) 0 % (0.0-2.0); EOSINOPHILS % (MANUAL) 0 % (0-4); LYMPHOCYTES % (MANUAL) 11 % (16-48); MONOCYTES % (MANUAL) 5 % (0-11.0); NEUTROPHILS % (MANUAL) 81 (42-76); PLATELET ESTIMATE DECREASED; TARGET CELLS 1+
[2024-03-28] MEDS: NOREPINEPHRINE 32 MG in IV NS 0.9% 218 ML IV PRN (09:05)
[2024-03-28] MEDS: DEXTROSE 50%-WATER 50 ML DISP.SYRIN IVP ONE (11:30)
[2024-03-28] MEDS: IV D5/0.45 NACL 1,000 ML IV ONE (11:30)
[2024-03-28] MEDS: PHENYLEPHRINE 100 MG in IV NS 0.9% 240 ML IV PRN (18:41)
[2024-03-28] MEDS ORDERED: PHENYLEPHRINE 100 MG in IV NS 0.9% 240 ML IV PRN (19:30)
== END 2024-03-28 20:00 | DRG 682 ==
LOC: ER 16:14 → MED 18:46 → TELE1 19:02 → ICU 03-14 17:45 → TELE1 03-18 17:27 → ICU 03-23 22:37 → UNDODISIN 03-29
PROVIDERS: ADMIT Internal Medicine
PROC: 05HM33Z Insertion of Infusion Device into Right Internal Jugular Vein, Percutaneous Approach (ICD-10-PCS; principal; 2024-03-14)
PROC: B543ZZA Ultrasonography of Right Jugular Veins, Guidance (ICD-10-PCS; 2024-03-14)
PROC: 5A1D70Z Performance of Urinary Filtration, Intermittent, Less than 6 Hours Per Day (ICD-10-PCS; 2024-03-14)
PROC: 30233R1 Transfusion of Nonautologous Platelets into Peripheral Vein, Percutaneous Approach (ICD-10-PCS; 2024-03-20)
PROC: 30233K1 Transfusion of Nonautologous Frozen Plasma into Peripheral Vein, Percutaneous Approach (ICD-10-PCS; 2024-03-21)
PROC: 30233M1 Transfusion of Nonautologous Plasma Cryoprecipitate into Peripheral Vein, Percutaneous Approach (ICD-10-PCS; 2024-03-21)
PROC: 5A09357 Assistance with Respiratory Ventilation, Less than 24 Consecutive Hours, Continuous Positive Airway Pressure (ICD-10-PCS; 2024-03-28)
DX: N17.9 Acute kidney failure, unspecified (principal); E43 Unspecified severe protein-calorie malnutrition; J96.01 Acute respiratory failure with hypoxia; I13.2 Hypertensive heart and chronic kidney disease with heart failure and with stage 5 chronic kidney disease, or end stage renal disease; J90 Pleural effusion, not elsewhere classified; E87.20 Acidosis, unspecified; G93.40 Encephalopathy, unspecified; E87.1 Hypo-osmolality and hyponatremia; D68.9 Coagulation defect, unspecified; E11.22 Type 2 diabetes mellitus with diabetic chronic kidney disease; N18.6 End stage renal disease; Z85.05 Personal history of malignant neoplasm of liver; K72.10 Chronic hepatic failure without coma; K74.60 Unspecified cirrhosis of liver; Z20.822 Contact with and (suspected) exposure to COVID-19; Z79.899 Other long term (current) drug therapy; I50.9 Heart failure, unspecified; I25.10 Atherosclerotic heart disease of native coronary artery without angina pectoris; E87.5 Hyperkalemia; E88.09 Other disorders of plasma-protein metabolism, not elsewhere classified; E11.40 Type 2 diabetes mellitus with diabetic neuropathy, unspecified; K21.9 Gastro-esophageal reflux disease without esophagitis; I48.91 Unspecified atrial fibrillation; E78.5 Hyperlipidemia, unspecified; D64.9 Anemia, unspecified; L30.4 Erythema intertrigo; M89.8X9 Other specified disorders of bone, unspecified site; Z66 Do not resuscitate; Z99.2 Dependence on renal dialysis; G47.33 Obstructive sleep apnea (adult) (pediatric); E66.9 Obesity, unspecified
CPT/HCPCS: 36415; 71045-TC; 71250-TC; 76770-TC; 80048-TC; 80053-TC; 80076-TC; 82140-TC; 82533; 82550-TC; 82962-TC; 83605-TC; 83690-TC; 83735-TC; 83880; 83970; 84100-TC; 84132-TC; 84155; 84165; 84484-TC; 85025-TC; 85385-TC; 85610-TC; 85730-TC; 86704; 86705; 86706; 86803; 86850-TC; 87040-TC; 87340; 90935-TC; 92526; 92611-TC; 93307-TC; 94660; 94762-TC; 94799-TC; A4216; A4223; G0378; J0282; J0692; J1644; J1720; J2060; J2270; J2405; J2470; J3370; J3430; J3480; J3490; J7030; J7050; J7060; P9012; P9017; P9034; P9047; Q9967